=== PATIENT | female | born 1975 | race Caucasian/White ===

== ENCOUNTER 2021-03-03 16:35 | Emergency (ER) | payer OTHER, SELFPAY ==
--- NOTE | 2021-03-03 17:00 | DI.RAD_ITS ---
Exam(s) XR HAND LT COMPLETE EXAM: XR HAND LT COMPLETE CLINICAL HISTORY: Hyperextension injury, R/O Fracture. TECHNIQUE: 2D digital imaging was performed. COMPARISON: No exams were available for comparison FINDINGS: BONES: No acute fracture is present. No bony destructive lesion is seen. JOINTS: No dislocation present. Moderate degenerative changes are seen at the 1st CMC joint with join t space narrowing and periarticular spurring. SOFT TISSUE: Normal. No radiopaque foreign bodies in the soft tissues. IMPRESSION: No acute fracture or dislocation. DATA REPOSITORY: RADIATION DOSE DELIVERED:
[2021-03-03 17:01] VITALS: BP 151/96; PULSE 97; RESP 16; TEMP 37.2; O2SAT 100
--- NOTE | 2021-03-03 17:07 | ED.GENADUL_ITS ---
Discharge Plan Disposition Patient Disposition: HOME Condition: Stable Discharge Details Clinical Impression: Hyperextension of joint of hand, Sprain of hand, left Primary Care Provider: Unknown,Unknown ED Provider: Cora Rizvi Home Meds and New Rx's Prescriptions: No Action coenzyme [id number] E 100-100 mg-unit capsule 2 cap PO DAILY RF: 0 Discharge Instructions Instructions: Hand Sprain (ED) Additional Instructions: Wear splint for comfort. Rest ice compression elevation. The x-rays today show no acute fracture or bony abnormality. After 5 to 7 days you may do some light stretching. Follow-up with orthopedics within 1 to 2 weeks if continued pain. Please take Tylenol or Ibuprofen with food every 4-6 hours as needed for pain and swelling. Referrals: Brock Yancey MD [ [facility] STAFF PHYSICIAN] - Medical Decision Making 45-year-old female presents to the ER with chief complaint of left hand pain status post a hyperextension type injury prior to arrival. Patient states that she had her hand on a swinging door when a child ran through the door pushing her hand backwards. She is complaining of some snuffbox tenderness, hand pain no obvious deformity noted. She has not taken any medications prior to arrival. Denies any forearm or elbow tenderness. Cap refill less than 2 seconds. Imaging protocol: XR Left hand. Views: 3 or more views. COMPARISON: No relevant prior studies available. FINDINGS: Bones/joints: There is mild joint space narrowing at the 1st carpometacarpal joint. No acute fracture dislocation is seen. Soft tissues: Normal. IMPRESSION: 1. No acute findings. 2. Mild degenerative change at the 1st carpometacarpal joint. Thank you for allowing us to participate in the care of your patient. Dictated and Authenticated by: Avery Tobias MD Thumb spica of universal wrist splint applied by medical staff services manager discussed x-ray results patient verbalized understanding. Instructed on RICE procedures at home and follow-up with Ortho in 1 to 2 weeks if continued pain. Patient verbalized understanding. Patient was given 650 mg Tylenol here in department which seemed to improve her symptoms. This text was generated using [employer] system, please disregard any oddities of phrase or misspellings. HPI General Mode of arrival: ambulatory . Date/Time Provider Initiated Documentation: 03/03/21 16:41 . Limitations to Documentation: no limitations . Information obtained by: patient . HPI Narrative: 45-year-old female presents to the ER with chief complaint of left hand pain status post a hyperextension type injury prior to arrival. Patient states that she had her hand on a swinging door when a child ran through the door pushing her hand backwards. She is complaining of some snuffbox tenderness, hand pain no obvious deformity noted. She has not taken any medications prior to arrival. Denies any forearm or elbow tenderness. Cap refill less than 2 seconds. Related Data Home Medications Medication Instructions Recorded Confirmed coenzyme I69-vhdavai E 100 mg-100 2 cap PO DAILY 02/06/21 unit capsule Allergies Allergy/AdvReac Type Severity Reaction Status Date / Time amoxicillin Allergy Severe stop Verified 03/03/21 17:03 breathing ampicillin Allergy Severe stop Verified 03/03/21 17:03 breathing Penicillins Allergy Severe Anaphylaxsi Verified 03/03/21 17:03 s erythromycin base Allergy Unknown Verified 03/03/21 17:03 General Stated Complaint: Orthopedic BALTA: 4 Review of Systems All systems reviewed & are unremarkable except as noted in HPI and below Musculoskeletal Musculoskeletal: Denies deformity, Reports arthralgias and Reports limited range of motion PFSH Family History Grandmother Neoplasm BREAST Grandmother Neoplasm BREAST Social History Smoking/Tobacco Use Status: Former Tobacco Use Smoking risk assessment performed?: Yes Alcohol Intake: never Drug use: Never Substance use type: does not use Do you feel safe at home: Yes Do you feel safe in your relationship?: Yes Exam Const General: cooperative, healthy appearing and acute distress mild (Tearful) Nutritional Appearance: average body habitus and well nourished Orientation: alert, awake and oriented x3 Resp Effort & Inspection: normal respiratory effort Auscultation: clear to auscultation bilaterally Cardio Rhythm: regular rhythm Heart Sounds: S1 normal and S2 normal Extrem Right upper extremity: normal capillary refill and hand Details: tenderness Location: of the dorsal hand, of the palm and of the thumb and normal ROM of fingers; no unusual warmth, no foreign bodies and no puncture wound; no cyanosis and joint enlargement noted Course Vital Signs Vital signs: Vital Signs Temperature 37.2 C 03/03/21 17:01 Pulse 97 H 06/14/21 17:01 Respiratory Rate 16 03/03/21 17:01 Blood Pressure 151/96 H 03/03/21 17:01 Pulse Oximetry 100 03/03/21 17:01 Temperature 37.2 C 03/03/21 17:01 Temperature Source Skin 03/03/21 17:01 Pulse 97 H 03/03/21 17:01 Respiratory Rate 16 03/03/21 17:01 Respiratory Effort Non-Labored 03/03/21 17:04 Blood Pressure 151/96 H 03/03/21 17:01 Blood Pressure Position Sitting 03/03/21 17:01 Pulse Oximetry 100 03/03/21 17:01 Oxygen Delivery Method Room Air 03/03/21 17:01 Oxygen Flow Rate 0 03/03/21 17:01 Pain Level 6 03/03/21 17:01
--- NOTE | 2021-03-03 18:17 | DI.VRAD_ITS ---
PROCEDURE INFORMATION: Exam: XR Left Hand Exam date and time: 03/03/2021 5:07 PM Age: 45 years old Clinical indication: Pain; Hand; Left TECHNIQUE: Imaging protocol: XR Left hand. Views: 3 or more views. COMPARISON: No relevant prior studies available. FINDINGS: Bones/joints: There is mild joint space narrowing at the 1st carpometacarpal joint. No acute fracture dislocation is seen. Soft tissues: Normal. IMPRESSION: 1. No acute findings. 2. Mild degenerative change at the 1st carpometacarpal joint. Dictated and Authenticated by: Avery Tobias MD. Ordering:JOSEPHINE Shepherd MD
[2021-03-03] MEDS: Acetaminophen 325 MG TAB 650 MG PO (18:18)
== END 2021-03-03 18:52 | disposition home or self-care (01) ==
PROVIDERS: Emergency Provider Registered Nurse Emergency
DX: S63.8X2A Sprain of other part of left wrist and hand, initial encounter (principal); X50.1XXA Overexertion from prolonged static or awkward postures, initial encounter
CPT/HCPCS: 29125; 99283; 73130

== ENCOUNTER 2021-03-07 01:55 | Outpatient (CLI) | payer OTHER, SELFPAY ==
--- NOTE | 2021-03-07 07:45 | DI.MAMMO_ITS ---
Exam(s) MAMMO SCREENING EXAM: MAMMO SCREENING CLINICAL HISTORY: screening,Z12.39 TECHNIQUE: Bilateral full field digital CC and MLO mammographic images were obtained with 3D tomosyn thesis and utilizing computer aided detection (CAD). COMPARISON: Available for comparison. FINDINGS: Masses/Architectural Distortion: None seen. Microcalcifications: No suspicious pleomorphic-type are seen. Skin Thickening/Nipple Retraction: None. IMPRESSION: 1. No significant interval change with no specific features of malignancy noted. 2. Unless there is more urgent need, screening mammography is recommended, as per [place] [employer] guidelines. BI-RADS Category 1 - Negative Breast Density - Category B - Scattered areas of fibroglandular density Breast density category C or D implies that the patient has dense breast tissue. Dense breast tissue is very common and is not abnormal but dense breast tissue can make it harder to find cancer on a ma mmogram. Also, dense breast tissue may increase their breast cancer risk. This information about the result of the mammogram report was provided to the patient to raise their awareness. Use this report when you speak with the patient about their risks for breast cancer, which includes their family hist ory. At that time, you may recommend for more screening tests (Ultrasound or MRI) as they might be us eful based on their risk. A negative radiographic report should not delay biopsy if a dominant or clinically suspicious mass is present. Up to ten percent of cancers are not identified on mammography. A negative report may reinforce clinical impression. Adenosis and dense breasts may obscure an underlying neoplasm. False positive reports average 6 to 10%. Patient will receive a letter notifying them of these results.
--- NOTE | 2021-03-07 07:45 | DI.US_ITS ---
Exam(s) US PELVIS TRANSVAGINAL EXAM: US PELVIS TRANSVAGINAL CLINICAL HISTORY: Abnormal vag bleeding,N93.9. TECHNIQUE: Transabdominal and transvaginal pelvic ultrasound was performed using standard protocol. COMPARISON: No previous for comparison. FINDINGS: KIDNEYS: Kidneys are symmetric in size. No evidence of renal calculi. No evidence of hydronephrosis. No renal mass or cyst identified. UTERUS: Position: Anteverted. Size: 9.6 long by 4.8 AP by 5.1 transverse cm Endometrium: 0.9 cm. Normal for patient's menstrual status. Myometrium: Unremarkable. Cervix: Unremarkable. OVARIES: Right: 2.7 x 2.1 x 2.0 cm Cyst or mass: None. Left: 3.1 x 3 x 1.7 cm Cyst or mass: None. DOPPLER: Color: Symmetric and uniform flow to both ovaries. No hyperemia. CUL-DE-SAC: Free fluid: None. Other: None. IMPRESSION: 1. Normal sonographic appearance of the kidneys. 2. Normal-appearing uterus with endometrial stripe within normal limits. 3. Unremarkable bilateral ovaries. DATA REPOSITORY:
== END 2021-03-07 02:15 ==
PROVIDERS: Visit Provider Nurse Practitioner Family
DX: Z12.31 Encounter for screening mammogram for malignant neoplasm of breast (principal); R92.8 Other abnormal and inconclusive findings on diagnostic imaging of breast; N93.9 Abnormal uterine and vaginal bleeding, unspecified
CPT/HCPCS: 77063; 77067; 76830; 76856

== ENCOUNTER 2021-03-07 03:02 | Outpatient (CLI) | payer OTHER, SELFPAY ==
[2021-03-07 13:45] LABS: TSH (W/Ref FT4) 0.93 uIU/mL (0.36-3.74)
== END 2021-03-07 03:03 | disposition home or self-care (01) ==
LOC: LBO 03:02
PROVIDERS: Visit Provider Nurse Practitioner Family
DX: N92.5 Other specified irregular menstruation (principal)
CPT/HCPCS: 36415; 84443

== ENCOUNTER 2021-03-25 03:47 | Outpatient (CLI) | payer OTHER, SELFPAY ==
[2021-03-25 09:49] LABS: Source Nasal/Nares
[2021-03-25 14:10] LABS: COVID-19 PCR Negative (Negative)
== END 2021-03-25 03:48 | disposition home or self-care (01) ==
LOC: LBO 03:47
PROVIDERS: Visit Provider Obstetrics & Gynecology Gynecology
DX: Z20.822 Contact with and (suspected) exposure to COVID-19 (principal); Z01.818 Encounter for other preprocedural examination
CPT/HCPCS: 87635

== ENCOUNTER 2021-03-25 04:14 | Outpatient (CLI) | payer OTHER, SELFPAY ==
[2021-03-25 07:51] LABS: HCT 28.9 % (36.0-46.0); HGB 7.5 g/dL (11.2-15.7); MCH 16.3 pg (27.0-33.0); MPV 9.4 fL (8.0-11.0); Platelet Count 305 10^3/uL (130-400); RBC 4.59 10^6/uL (3.93-5.22); RDW 19.3 % (11.7-14.6); RDW-SD 42.5 fL; WBC 5.01 10^3/uL (4.4-10.8)
[2021-03-25 08:36] LABS: HCG Qual (Serum) Negative
[2021-03-25 08:48] LABS: Anion Gap 8.3 mmol/L (3-11); CO2 26.7 mmol/L (21.0-32.0); Chloride 108 mmol/L (98-107); Potassium 5.2 mmol/L (3.5-5.1); Sodium 143 mmol/L (136-145)
== END 2021-03-25 04:15 | disposition home or self-care (01) ==
LOC: LBO 04:15
PROVIDERS: Visit Provider Obstetrics & Gynecology Gynecology
DX: N93.8 Other specified abnormal uterine and vaginal bleeding (principal); D25.9 Leiomyoma of uterus, unspecified; Z01.818 Encounter for other preprocedural examination; Z01.812 Encounter for preprocedural laboratory examination
CPT/HCPCS: 36415; 80051; 85027; 86850; 86900; 86901; 84703

== ENCOUNTER 2021-03-27 12:14 | Day surgery (SDC) | payer OTHER, SELFPAY ==
[2021-03-27] VITALS (8 sets, daily range): BP systolic 99–161; BP diastolic 54–86; PULSE 54–78; RESP 16–24; TEMP 36–36.7; O2SAT 92–100; BMI 35.4
[2021-03-27] MEDS: Lactated Ringers 1,000 ML 125 ML IV ×2 (12:58→18:05)
--- NOTE | 2021-03-27 13:19 | ANES.PREOP_ITS ---
General Info Date of Service Date Performed: 03/27/21 Height: 5 ft 7 in Weight: 102.739 kg Body Mass Index (BMI): 35.4 Surgical Procedure: Operation Date: 03/27/21 14:40 Proposed Procedures Side Surgeon p hysteroscopic assisted resection of aborting submucosal fibroid Raquel Balbuena MD Meds Allergies and Home Medications Allergies Allergy/AdvReac Type Severity Reaction Status Date / Time amoxicillin Allergy Severe stop Verified 03/27/21 12:36 breathing ampicillin Allergy Severe stop Verified 03/27/21 12:36 breathing Penicillins Allergy Severe Anaphylaxsi Verified 03/27/21 12:36 s erythromycin base Allergy Unknown Verified 03/27/21 12:36 Cillins Allergy Severe Anaphylaxis Uncoded 03/27/21 12:36 Home Medication Medication Instructions Recorded coenzyme A93-bnevfql E 100 mg-100 2 cap PO DAILY 02/06/21 unit capsule Current Visit Medications: Current Medications Generic Name Dose Route Start Last Admin Trade Name Freq PRN Reason Stop Dose Admin Ringer's Solution 1,000 mls @ 125 mls/hr 03/27/21 06:00 03/27/21 12:58 IV 04/25/21 23:59 125 mls/hr INFUSION ANDI Administration IV Miscellaneous Supplies 1 each 03/27/21 06:00 Iv Access IV 04/25/21 23:59 DIRECTED ANDI Sodium Chloride 0 ml 03/27/21 06:00 Normal Saline Flush 10 Ml Syr IV 04/25/21 23:59 PRN PRN Sodium Chloride 0 ml 03/27/21 06:00 Normal Saline 10 Ml Vial IJ 04/25/21 23:59 DIRECTED PRN Sterile Water 0 ml 03/27/21 06:00 Water,Injection,Sterile 10 Ml Vial IJ 04/25/21 23:59 DIRECTED PRN PFSH Active Problems Active Problems: Problem Status Onset Code Pre-op exam Z01.818 Anemia D64.9 Hyperextension of joint of hand R29.898 Sprain of hand, left S63.92XA Cervical mass N88.8 Medical History Medical History Cervical mass 01/2021. Mass protruding through cervix. Most likely aborting submucosal fib roid Surgical History Surgical History History of tubal ligation Previous section x3 Tobacco Smoking/Tobacco Use Status: Former Tobacco Use Alcohol Alcohol Intake: never Substance Use Substance use: Never Substance use type: does not use Prental History History 6 Para Hx # Term Pregnancies 1 Multiple births Hx # Pregnancies Ectopic pregnancies AB induced Hx Number of Living Children 1 AB spontaneous Vital Signs and Lab Results Vital Signs Most Recent Vital Signs in EMR: Most Recent Vital Signs Temp Pulse Resp BP Pulse Ox 36.7 C 78 16 161/78 H 100 03/27/21 12:24 03/27/21 12:24 03/27/21 12:24 03/27/21 12:24 03/27/21 12:24 Lab Results Blood Type / Crossmatch: Patient ABO/Rh O Positive 03/25/21 07:40 03/25/21 Antibody Screen NEGATIVE 03/25/21 07:40 03/25/21 Complete Blood Count: White Blood Count 5.01 10^3/uL (4.4-10.8) 03/25/21 07:40 03/25/21 Red Blood Count 4.59 10^6/uL (3.93-5.22) 03/25/21 07:40 03/25/21 Hemoglobin 7.5 g/dL (11.2-15.7) L 03/25/21 07:40 03/25/21 Hematocrit 28.9 % (36.0-46.0) L 03/25/21 07:40 03/25/21 Platelet Count 305 10^3/uL (130-400) 03/25/21 07:40 03/25/21 Complete Metabolic Panel: Sodium Level 143 mmol/L (136-145) 03/25/21 07:40 03/25/21 Potassium Level 5.2 mmol/L (3.5-5.1) H 03/25/21 07:40 03/25/21 Chloride Level 108 mmol/L (98-107) H 03/25/21 07:40 03/25/21 Carbon Dioxide Level 26.7 mmol/L (21.0-32.0) 03/25/21 07:40 03/25/21 Liver Function Panel: No Data to Display Coagulation Panel: No Data to Display Cardiac Panel: No Data to Display Arterial Blood Gas: No Data to Display Venous Blood Gas: No Data to Display Pancreas Panel: No Data to Display Thyroid Panel: Thyroid Stimulating Hormone (TSH) 0.93 uIU/mL (0.36-3.74) 03/07/21 12:17 03/07/21 Infectious Disease: Coronavirus (COVID-19)(PCR) Negative (Negative) 03/25/21 08:40 03/25/21 Coronavirus 2019 Source Nasal/Nares 03/25/21 08:40 03/25/21 Blood Cultures: No Data to Display Toxicology Panel: No Data to Display Panel: Serum HCG, Qualitative Negative 03/25/21 07:40 03/25/21 Anesthesia Assessment and Plan Anesthesia History Personal History: No History of General Anesthesia Family History: No Family History of Anesthesia Complications Exercise Tolerance Exercise Tolerance: Metabolic Equivalents>4 Pertinent Negatives Pertinent Negatives: No Symptoms of GERD, No Major Cardiovascular Symptoms or Complaints, No Major Pulmonary Symptoms or Complaints and No History of CVA/TIA Cardiac & Pulmonary Exam Cardiac Exam: Normal S1/S2 Heart Sounds Pulmonary Exam: Clear Bilateral Breath Sounds Airway Exam Known Difficult Airway: No Mallampati Class: 2 Mouth Opening: Normal (> 3cm) Thyromental Distance: Greater than 3 cm Neck Range of Motion: Full ROM Neck Circumference: Normal Teeth Condition: Normal Dentition Airway Comments: Micrognathia High angle narrow palate ASA Classification ASA Score: ASA 2 Emergency Case?: No NPO Status NPO Status: NPO Clears >2 hours, Solids >8 hours Status Status: Negative HCG Anesthesia Plan Resuscitation Status: Full Code Anesthesia Technique: General Anesthesia Airway Planned: LMA Monitors Used: Standard Monitors
[2021-03-27] MEDS: Bupivacaine 0.25% Pres-Free 30 ML VIAL (16:37)
--- NOTE | 2021-03-27 16:45 | LEIOMYOMA_PTH ---
PATIENT: Mireille Mccullough LOC: [facility] U#:[id number] AGE/SX: 45/F ROOM: RE03/27/[address]: Raquel Balbuena : 1975 BED: DIS: 03/27/2021 SPEC #: [id number] RECD: 03/28/21 09:53 STATUS: YESSENIA REEdward #: [id number] JANE: 03/27/21 16:[address]: Raquel Balbuena DEPT: Surgical Specimen RECD BY: Altagracia Martinez ENTERED: 03/28/21 09:54 SP TYPE: LEIOMYOMA OTHR DR: None Tissues: 1 - LEIOMYOMA(W/O UTERUS) 2 - ENDOMETRIUM BX/CURRETTE Procedures: GROSS AND MICRO LEVEL 4 Comments: [id number]
--- NOTE | 2021-03-27 17:01 | W.PM.DSUDISC ---
Discharge Plan Disposition Patient Disposition: HOME Condition: Fair Discharge Details Reason For Visit: Hysteroscopic resection of first case she really.- Attending Provider: Raquel Balbuena Primary Care Provider: None,None Home Meds and New Rx's Prescriptions: No Action coenzyme R37-xwiwgfw E 100-100 mg-unit capsule 2 cap PO DAILY RF: 0 Discharge Instructions Additional Instructions: You have vaginal discharge including light bleeding for the next week. Continue to wear a pad and avoid tampons. If you have heavy bleeding that is saturating a regular size peripad I want you to contact me at [phone]. Nothing in the vagina including tampons or sexual intercourse until your postop visit with Dr. Balbuena in 2 weeks. Stand Alone Forms: DSU Post op Instructions Activity:: Activity as Tolerated Diet:: As Tolerated Discharge Orders Discharge Orders: Discharge Order (Routine); Ordered 03/27/21 Ordered By: Raquel Balbuena DS: Diagnosis Discharge Diagnosis (1) Cervical mass: Status: Acute (2) Anemia: Status: Chronic (3) Status post hysteroscopic myomectomy: Status: Acute
--- NOTE | 2021-03-27 17:36 | W.ANESPOSTOP ---
Postoperative Evaluation Date, Time and Location Date Performed: 03/27/21 Time Performed: 17:37 Patient Location: Day Surgery Unit Vital Signs Most Recent Imported Vital Signs: Most Recent Vital Signs Temp Pulse Resp BP Pulse Ox 36.0 C L 61 24 108/62 99 03/27/21 17:32 03/27/21 17:32 03/27/21 17:32 03/27/21 17:32 03/27/21 17:32 Assessment Mental Status: Awake (Alert & Oriented to Patient Baseline) Airway and Respiratory Function: Patent airway with normal (patient baseline) respiratory exam Cardiovascular Function: Hemodynamically Stable Hydration Status: Adequately Hydrated Nausea & Vomiting: No Nausea or Vomiting Pain: Pt. Denies Any Pain Peripheral Nerve Block: Patient did not receive a nerve block
--- NOTE | 2021-03-27 19:52 | W.PM.OP ---
Date of service: 03/27/21 Time of Service: 19:53 Operative Note Operative Note DATE OF PROCEDURE: 03/27/21 PRE-OP DIAGNOSIS: Anemia, submucosal fibroid aborting through cervix. POST-OP DIAGNOSIS: same ared normal dimension. The uterine cavity also appeared normal. At the completion of the imaging the catheter bulb was deflated and removed from the patient's vagina. The results of the procedure were discussed at length with the patient. She tolerated the procedure well. PROCEDURE: Hysteroscopy, resection of transcervical fibroid, uterine cavity curretage. SURGEON: Raquel Balbuena ASSISTING SURGEON: Aranza Muniz ANESTHESIA TYPE: General LMA/ETT Refer to Anesthesia Record ESTIMATED BLOOD LOSS: 10 PATHOLOGY: other (1. Transcervical fibroid 2. Endometrial curettings) COMPLICATIONS: None Patient was transported to: PACU Patient's condition: stable Indications: 45-year-old female with a history of abnormal uterine bleeding and physical exam revealing an aborting sub-mucosal fibroid. Preop testing indicated microcytic anemia and a normal thyroid stimulating hormone level Findings: 4cm firm mass attatched to the left lateral distal vagina and protruding through dilated cervix. Procedure Description: Patient was taken to the operating room where she was placed in the dorsal supine position and laryngeal mask anesthesia was administered without difficulty. She was then placed in the dorsal lithotomy position in yellowfin stirrups, prepped and draped in the usual sterile fashion. SCDs were in place. No antibiotics were required. Surgical timeout was performed a nd a bivalve speculum was placed in the patient's vagina. The anterior lip of the cervix was grasped with a single-tooth tenaculum. A paracervical block was performed by infiltrating 5 cc of 0.25% bupivacaine at the 4:00 and 6:00 paracervical spaces respectively. A diagnostic hysteroscope was introduced into the uterine cavity with the above noted findings then removed and in it's place a resectoscope was inserted into the uterine cavity with normal saline as the distention medium. I was unable achieve a satisfactory angle by which to begin the resection and then withdrew the resectoscope. I placed a surgical loop around the base of the fibroid and successfully amputated. The specimen was then passed off of the operative field. A banjo currete was introduced into the uterine cavity and all four quadrants of cavity were sampled. The hysteroscope was then reintroduced into the uterine cavity. No additional intracavity filling defects were noted. The hysteroscope was withdrawn and instruments removed from the vagina. Tenaculum site was noted to be hemostatic. The patient placed in the dorsal supine position. She was successfully awakened from anesthesia and transported to day surgery unit in stable condition. All sponge lap needle counts correct x2.
== END 2021-03-27 20:08 | disposition home or self-care (01) ==
LOC: SUR 17:17 → MS 18:03
PROVIDERS: Visit Provider Obstetrics & Gynecology Gynecology
PROC: 0UDB8ZZ Extraction of Endometrium, Via Natural or Artificial Opening Endoscopic (ICD-10-PCS; CPT 58558; principal; 2021-03-27 14:30)
DX: D25.0 Submucous leiomyoma of uterus (principal); D50.0 Iron deficiency anemia secondary to blood loss (chronic)
CPT/HCPCS: 58561; 88305; 88307; J0131; J1100; J2001; J2250; J2405

== ENCOUNTER 2021-05-29 16:17 | Outpatient (REF) | payer SELFPAY | END 2021-05-29 16:18 | disposition home or self-care (01) | LOC: LBN 16:17 | PROVIDERS: Visit Provider Obstetrics & Gynecology Gynecology | DX: N61.1 Abscess of the breast and nipple (principal) | CPT/HCPCS: 87070; 87205 ==

== ENCOUNTER → 2022-04-17 00:46 | Outpatient (CLI) | payer MEDICAID, SELFPAY ==
--- OUTSIDE RECORDS SUMMARY | 2022-04-17 00:48 | XMS_ITS | Encounter Summary ---
:1975 Author Organization [facility] Address [address] [place] [address] Care Team Providers Name Role Phone Unknown, Provider Primary Care Provider Encounter Details Date Type Department Care Team Description 03/28/2021 Lab Requisition [facility] Raquel Arevalo, En counter for other Pathology & MD general examination Laboratory Medicine [address] [place] [id number] Social History Tobacco Use Types Packs/Day Years Used Date Never Assessed Sex Assigned at Date Recorded Not on file documented as of this encounter Plan of Treatment Not on filedocumented as of this encounter Procedures Procedure Name Priority Date/Time Associated Diagnosis Comme nts SURGICAL PATHOLOGY Today 03/27/2021 16:45 Encounter for othe r Results for this EDT general examination procedur e are in the results section. documented in this encounter Results SURGICAL PATHOLOGY (03/27/2021 16:45 EDT) Final Diagnosis Attention patients [facility] The following pathology re sults have been interpreted by your pathologist and may be available to you before your health provider has had the opportunity to review them. Please allow time for your pro CENTER vider to receive these resul ts and explore management options, if applicable. LABORATORY SERVICES A. UTERUS, LEIOMYOMA, MYOMECTOMY: - Submucosal leiomyoma. - Overlying endocervical and squamous mucosa with erosion and inflammation and scant endometrium. See comment. B. ENDOMETRIUM, CURETTAGE: - Fragments of endometrial polyp(s) with secretory poncho nge. - Menstrual-type endometrium. See comment. Diagnosis Comment Back Roller slides [facility] of this case were CENTER reviewed at the LABORATORY intradepartmental SERVICES consultation conference. The presence of overlying endometrium and cervical mucosa in (A) raises the possibility of that the leiomyoma was located in the lower uterine segment with prolapse into the cervical canal. Correlation with the operative impression is necessary. Attestation There was significant [facility] Electr onically resident/fellow CENTER signed by Salome clemons, involvement in the LABORATORY Kelly Delaney MD on diagnostic evaluation SERVICES 021 at 1505 of this case. By the signature below, the attending physician certifies that they have personally conducted a gross and/or microscopic examination of the described specimens and rendered or confirmed the above diagnosis. Clinical History Uterine mass [facility] LABORATORY SERVICES Gross Description A. [facility] Received in formalin kyra d with proper patient identification (initials B, H) and 1. Submucosal fibroid is a firm white nodular mass (17.1 g, 5.0 x 2.5 x 2.5 cm). Sectioning the mass reveals a whor CENTER led white cut surface. Back Roller sections a re submitted in A1-A5. LABORATORY SERVICES B. Received in formalin kyra d with proper patient identification (initials B, H) and 2. Uterine curettings is an aggregate of brown and stewart friable tissue (2.7 x 1.2 x 0.7 cm). Entirely submitted in B1-B2. Marshall Burrell MD 03/31/2021 14:40 Resident/Fellow: Marshall Burrell MD [facility] LABORATORY SERVICES Performing Lab [facility]ORAT[facility] SERVICES Scanned Images [facility] LABORATORY SERVICES Specimen Tissue - Entire endometrium (body struct ure) Tissue specimen (specimen) - Entire endo metrium (body structure) Performing Organization Address City/State/[facility] Code Phon e Number [facility] [address] [place] [address] SERVICES documented in this encounter Visit Diagnoses Diagnosis Encounter for other general examination documented in this encounter Care Teams Binder Stripper Machine Relationship Specialty Start Date End Date Unknown, Provider, PCP - General 05/22/10 documented as of this encounter
--- OUTSIDE RECORDS SUMMARY | 2022-04-17 00:48 | XMS_ITS | Clinical Summary ---
:1975 Author Organization [facility] Address [address] [place] [id number] Care Team Providers Name Role Phone Unknown, Provider Primary Care Provider Social History Tobacco Use Types Packs/Day Years Used Date Never Assessed Sex Assigned at Date Recorded Not on file Plan of Treatment Health Maintenance Due Date Last Done Comments COVID-19 Vaccine (1) 1985 Insurance Payer Benefit Plan / Subscriber ID Effective Dates Phone Addre ss Type Group MVP [facility] [id number] 2021-Present [phone] [id number] [place] [address] Care Teams Student Support Counselor Relationship Specialty Start Date End Date Unknown, Provider, PCP - General 05/22/10
--- OUTSIDE RECORDS SUMMARY | 2022-04-17 00:49 | XMS_ITS | Encounter Summary ---
:[address] [facility] Address [address] [place] [address] Care Team Providers Name Role Phone Unknown, Provider Primary Care Provider Encounter Details Date Type Department Care Team Description 10/03/2010 Results Only [facility] Shannon Gandara MD Laboratory Services - [address] [place] [address] [place] [phone] Social History Tobacco Use Types Packs/Day Years Used Date Never Assessed Sex Assigned at Date Recorded Not on file documented as of this encounter Plan of Treatment Not on filedocumented as of this encounter Procedures Procedure Name Priority Date/Time Associated Diagnosis Comme nts SURGICAL PATHOLOGY Routine 10/03/2010 0:00 EST Re sults for this procedure are i n the results section. documented in this encounter Results SURGICAL PATHOLOGY (10/03/2010 0:00 EST) Pathology Report: SURGICAL PATHOLOGY REPORT ? [facility] Reports generated via Jostle interface contain original data; ? LAB however they are lacking the format of the original report. ? Caution should be taken when reading/interpreting unformatted reports. ? Name: ? JOHNATHAN, HEAT HER L ? Accession #: ? [id number] ? : ? 1975 (Age: 34) ??F ? Collec t Date: ? 10/03/2010 ? Location: ? [facility] ? R eceive Date: ? 10/04/2010 ? Provider: SHANNON ALEXX MD ? Copy to: KD GREEN MD ? Final Pathologic Diagnosis: ? A. ?Fallopian t ube, left, salpingectomy: ? 1. ?No specific pathologic features. ? 2. ? Full cross section demonstrated. ? B. ?Fallopian t ube, right, salpingectomy: ? 1. ?No specific pathologic features. ? 2. ? Full cross section demonstrated. ? Document reviewed and electr onically signed by: ? SATURNINO LARSEN MD ? Report ??Date: 10/07/2010 13 :18 ? By the signature above, the attending physician certifies that he/she has ? personally conducted a gross and/or microscopic examination of the described ? specimens and rendered or co nfirmed the above diagnosis. ? Specimen(s) Received: ? A. ?Left tube ? B. ? Right tube ? Clinical History: ? Desires sterilization ? Gross Description: ? Received in formalin labelled Mireille Mccullough and left tube is a ?? stewart-pink, tubular, 1.0 cm in length, 0.4 cm in diameter soft tissue surfaced by a stewart, glistening serosa. ?? Upon sectioning, the cut surfaces are wallis-white with a central, pinpoint lumen. ? ?No discrete nodule is present. ??Two premium representative ?? sections are submitted as (A ). ? Received in formalin kyra d Mireille Mccullough and right tube is a ? stewart-pink, tubular, 1.3 cm in length, 0.3 cm in diameter soft tissue surfaced by a stewart, glistening serosa. ?? The cut surfaces are wallis-white with a central, ? pinpoint lumen. ??No discret e nodule is present. ??Ammonium Hydroxide Operator sections are ? submitted as (B). ([facility] ? End of Report ? Specimen Performing Organization Address City/State/[facility] Code Phon e Number [facility] [address] [place] [address] SERVICES [facility] [address] [place] [address] documented in this encounter Visit Diagnoses Not on filedocumented in this encounter Care Teams Penetration Tester Relationship Specialty Start Date End Date Unknown, Provider, PCP - General 05/22/10 documented as of this encounter
--- OUTSIDE RECORDS SUMMARY | 2022-04-17 00:49 | XMS_ITS | Encounter Summary ---
:1975 Author Organization [facility] Address [address] [place] [address] Care Team Providers Name Role Phone Unknown, Provider Primary Care Provider Encounter Details Date Type Department Care Team Description 02/21/2018 Results Only [facility]- Kate Parker NP [phone] [place] [address] [place] [address] (Wo rk) Social History Tobacco Use Types Packs/Day Years Used Date Never Assessed Sex Assigned at Date Recorded Not on file documented as of this encounter Plan of Treatment Not on filedocumented as of this encounter Procedures Procedure Name Priority Date/Time Associated Diagnosis Comme nts PAP TEST- RESULT Routine 02/21/2018 0:00 EDT Resu lts for this ONLY procedure are i n the results section. documented in this encounter Results PAP TEST- RESULT ONLY (02/21/2018 0:00 EDT) Pathology Report: CYTOPATHOLOGY REPORT [facility] Reports generated via electronic interface contain des ginal data; SERVICES however they are lacking the format of the original re port. Caution should be taken when reading/interpreting unfo rmatted reports. Name: ? JEAN PAUL MCCULLOUGH ? Accession #: ? [id number] ? : ? 1975 (Age: [age]) ??F ?Collect Date: ? 2017 ? Location: ? [facility] ? Receive Date: ? 8 ? Provider: KATE SEGURA PAINTER MIRROR Copy to: ? Final Report SPECIMEN ADEQUACY ? Satisfactory for Evaluation - transformation zone component present GENERAL CATEGORIZATION ? Negative for Intraepithelial Lesion or Malignan cy ?? Last Menstrual Period: 02/10/18 Specimen/Source: ??Pap Test, Cervix, ThinPrep Imaging System with manual evaluation Document reviewed and electronically signed by: ? GAIL Mccullough(ASCP) ? Report ??Date: 03/01/2018 08:59 HPV with Pap Test ? Date Ordered: ? 03/01/2018 ? Status: ?? Signed Out ?Date Complete: ? 03/02/2018 ? By: ??Sy stem Interface ? Date Reported: ? 03/02/2018 ? Interpretation RESULT: Negative for HPV. No E6 or E7 mRNA is detected from HPV types 16,18,31,3 3,35, 39,45,51,52,56,58,59,66, and 68 by continuum of care manager media dimitri amplification. Comments Document reviewed and electronically signed by: ? System Interface ? Report date: 03/02/2018 By the signature above, the attending physician certif ies that he/she has personally conducted a gross and/or microscopic examin ation of the described specimens and rendered or confirmed the above diagnosi s. End of Report Specimen Performing Organization Address City/State/ZIP Code Phon e Number [facility] [address] [place] [address] SERVICES documented in this encounter Visit Diagnoses Not on filedocumented in this encounter Care Teams Rn Sexual Assault Relationship Specialty Start Date End Date Unknown, Provider, PCP - General 05/22/10 documented as of this encounter
--- OUTSIDE RECORDS SUMMARY | 2022-04-17 00:49 | XMS_ITS | Encounter Summary ---
:1975 Author Organization [facility] Address [address] [place] [address] Care Team Providers Name Role Phone Unknown, Provider Primary Care Provider Encounter Details Date Type Department Care Team Description 10/19/2006 Results Only [facility] - Susan Gandara MD Maple conversion [address] [place] [address] Social History Tobacco Use Types Packs/Day Years Used Date Never Assessed Sex Assigned at Date Recorded Not on file documented as of this encounter Plan of Treatment Not on filedocumented as of this encounter Procedures Procedure Name Priority Date/Time Associated Diagnosis Comme nts CYTOPATHOLOGY Routine 10/19/2006 0:00 EST Results for this procedure are i n the results section . documented in this encounter Results CYTOPATHOLOGY (10/19/2006 0:00 EST) Pathology Report: CYTOPATHOLOGY REPORT [facility] Reports generated via electronic interface contain des ginal data; however they are lacking the format of the original re port. Caution should be taken when reading/interpreting unfo rmatted reports. Name: ? MIREILLE MCCULLOUGH ? Accession #: ? [id number] : ? 1975 (Age: 30) ??F ?Collect Date: ? 09/22 Location: ? [facility] ? Receive Date : ? 10/20/2006 Provider: ?BERKLEY GANDARA MD Copy to: ? Specimen/Source: ? ThinPrep Pap Test, Cervix, processed on [employer] ThinPrep Imaging System, with manual evaluation Last Menstrual Period: ? 08/10/05 Hormonal/Contraceptive Status: ? Condoms Other: ? Additional clinical information: Pap wnl HPVA - HPV testing requested if ASC-US on the current ThinPrep Pap test. ? SPECIMEN ADEQUACY ? Satisfactory for Evaluation - transformation zone component present GENERAL CATEGORIZATION ? Negative for Intraepithelial Lesion or Malignan cy ? Document reviewed and electronically signed by: ? GAIL Scott(ASCP) ? Report Date: ??10/21/2006 14:40 End of Report Specimen Performing Organization Address City/State/ZIP Code Phon e Number [facility] [address] [place] [address] SERVICES [facility] [address] [place] [address] documented in this encounter Visit Diagnoses Not on filedocumented in this encounter Care Teams Bus Boy Relationship Specialty Start Date End Date Unknown, Provider, PCP - General 05/22/10 documented as of this encounter
--- OUTSIDE RECORDS SUMMARY | 2022-04-17 00:49 | XMS_ITS | Encounter Summary ---
:1975 Author Organization [facility] Address [address] [place] [address] Care Team Providers Name Role Phone Unknown, Provider Primary Care Provider Encounter Details Date Type Department Care Team Description 10/02/2005 Results Only [facility] - Susan Gandara MD Maple conversion [address] [place] [address] [place] [address] Social History Tobacco Use Types Packs/Day Years Used Date Never Assessed Sex Assigned at Date Recorded Not on file documented as of this encounter Plan of Treatment Not on filedocumented as of this encounter Procedures Procedure Name Priority Date/Time Associated Diagnosis Comme nts CYTOPATHOLOGY Routine 10/02/2005 0:00 EST Results for this procedure are i n the results section . documented in this encounter Results CYTOPATHOLOGY (10/02/2005 0:00 EST) Pathology Report: CYTOPATHOLOGY REPORT [facility] Reports generated via electronic interface contain des ginal data; however they are lacking the format of the original re port. Caution should be taken when reading/interpreting unfo rmatted reports. Name: ? MIREILLE MCCULLOUGH ? Accession #: ? [id number] : ? 1975 (Age: 29) ??F ?Collect Date: ? 09/20 Location: ? [facility] ? Receive Date : ? 10/05/2005 Provider: ?BERKLEY GANDARA MD Copy to: ? Specimen/Source: ? ThinPrep Pap Test, Cervix/Endocervix, processed on [employer] ThinPrep Imaging System, with manual evaluation Last Menstrual Period: ? 09/23/05 Hormonal/Contraceptive Status: ? Intrauterine device Other: ? HPVA - HPV testing requested if ASC-US on the current ThinPrep Pap test. ? SPECIMEN ADEQUACY ? Satisfactory for Evaluation - transformation zone component present GENERAL CATEGORIZATION ? Negative for Intraepithelial Lesion or Malignan cy INTERPRETATION ? Shift in tonie present suggestive of bacterial vaginosis. ? Document reviewed and electronically signed by: ? GAIL Scott(ASCP) ? Report Date: ??10/06/2005 16:18 End of Report Specimen Performing Organization Address City/State/ZIP Code Phon e Number [facility] [address] [place] [address] SERVICES [facility] [address] [place] [address] documented in this encounter Visit Diagnoses Not on filedocumented in this encounter Care Teams Machinist Mechanic Relationship Specialty Start Date End Date Unknown, Provider, PCP - General 05/22/10 documented as of this encounter
--- OUTSIDE RECORDS SUMMARY | 2022-04-17 00:49 | XMS_ITS | Encounter Summary ---
:1975 Author Organization [facility] Address [address] [place] [address] Care Team Providers Name Role Phone Unavailable Primary Care Provider Unavailable Encounter Details Date Type Department Care Team Description 04/20/2003 Results Only [facility] - Susan Gandara MD Maple conversion [address] [place] [address] [place] [address] Social History Tobacco Use Types Packs/Day Years Used Date Never Assessed Sex Assigned at Date Recorded Not on file documented as of this encounter Plan of Treatment Not on filedocumented as of this encounter Procedures Procedure Name Priority Date/Time Associated Diagnosis Comme nts CYTOPATHOLOGY Routine 04/20/2003 0:00 EDT Results for this procedure are i n the results section . documented in this encounter Results CYTOPATHOLOGY (04/20/2003 0:00 EDT) Pathology Report: CYTOPATHOLOGY REPORT [facility] Reports generated via electronic interface contain des ginal data; however they are lacking the format of the original re port. Caution should be taken when reading/interpreting unfo rmatted reports. Name: ? MIREILLE MCCULLOUGH ? Accession #: ? [id number] : ? 1975 (Age: 27) ??F ?Collect Date: ? 08/0 09/2002 Location: ? [facility] ? Receive Date : ? 04/23/2003 Provider: ?BERKLEY GANDARA MD Copy to: ? Specimen/Source: ?ThinPrep Pap Test, Cervix/ Endocervix Last Menstrual Period: ? 05/22 Menstrual/ Status: ? Post Hormonal/Contraceptive Status: ? Condoms ? SPECIMEN ADEQUACY ? Satisfactory for Evaluation - transformation zone component present GENERAL CATEGORIZATION ? Negative for Intraepithelial Lesion or Malignan cy ? Document reviewed and electronically signed by: ? GAIL Mccullough(ASCP) ? Report Date: ??04/26/2003 06:16 End of Report Specimen Performing Organization Address City/State/ZIP Code Phon e Number [facility] [address] [place] [address] SERVICES [facility] [address] [place] [address] documented in this encounter Visit Diagnoses Not on filedocumented in this encounter
--- OUTSIDE RECORDS SUMMARY | 2022-04-17 00:49 | XMS_ITS | Encounter Summary ---
:1975 Author Organization [facility] Address [address] [place] [address] Care Team Providers Name Role Phone Unavailable Primary Care Provider Unavailable Encounter Details Date Type Department Care Team Description 05/20/2010 Results Only [facility] Jad Lagunas, AG Laboratory Services - [id number] [place] [id number] [phone] Social History Tobacco Use Types Packs/Day Years Used Date Never Assessed Sex Assigned at Date Recorded Not on file documented as of this encounter Plan of Treatment Pending Results Name Type Priority Associated Diagnoses Date/Ti me AFP ONLY Lab Routine 05/20/2010 11:0 3 EDT [facility] INTERPRETATION Lab Routine 0 11:03 EDT Scheduled Orders Name Type Priority Associated Diagnoses Order S chedule AFP ONLY Lab Routine ONCE for 1 Occu rrences starting 05/20/2010 unti l 05/20/2010 [facility] INTERPRETATION Lab Routine ONCE for 1 Occurrences starting 05/21/2010 unti l 05/21/2010 documented as of this encounter Visit Diagnoses Not on filedocumented in this encounter
--- OUTSIDE RECORDS SUMMARY | 2022-04-17 00:49 | XMS_ITS | Encounter Summary ---
:1975 Author Organization [facility] Address [address] [place] [address] Care Team Providers Name Role Phone Unavailable Primary Care Provider Unavailable Encounter Details Date Type Department Care Team Description 03/17/2010 Results Only [facility] Jad Lagunas, SEAMUS Laboratory Services - [id number] [place] [address] [id number] [phone] Social History Tobacco Use Types Packs/Day Years Used Date Never Assessed Sex Assigned at Date Recorded Not on file documented as of this encounter Plan of Treatment Not on filedocumented as of this encounter Procedures Procedure Name Priority Date/Time Associated Diagnosis Comme nts CYTOPATHOLOGY Routine 03/17/2010 0:00 EDT Results for this procedure are i n the results section . documented in this encounter Results CYTOPATHOLOGY (03/17/2010 0:00 EDT) Pathology Report: CYTOPATHOLOGY REPORT ? [facility] Reports generated via [employer] interface contain original data; ? however they are lacking the format of the original report. ? Caution should be taken when reading/interpreting unformatted reports. ? Name: ? JEAN PAUL MCCULLOUGH HER L ? Accession #: ? [id number] ? : ? 1975 (Age: 34) ??F ?Collect Date: ? 03/17/2010 ? Location: ? [facility] ? Receive Date: ? 03/18/2010 ? Provider: ?KD IRIZARRY DIANE CNM ? Copy to: ? Specimen/Source: ? Pap Test, Cervix/Endocervix, ThinPrep Imaging System ? with manual evaluation ? Last Menstrual Period: ? 4/5/10 ? Menstrual/ Status: ? Other: ? HPVA - HPV testing requested if ASC-US on the current ThinPrep Pap test. ? SPECIMEN ADEQUACY ? Satisfactory for Eval uation ? - transformation zone compon ent present ? GENERAL CATEGORIZATION ? Negative for Intraepi thelial Lesion or Malignancy ? Document reviewed and electr onically signed by: ? Ryanne Verville,[place](ASCP) ? Report Date: ??07/02/ 2010 11:14 ? End of Report ? Specimen Performing Organization Address City/State/ZIP Code Phon e Number [facility] [address] [place] [address] SERVICES [facility] [address] [place] [address] documented in this encounter Visit Diagnoses Not on filedocumented in this encounter
--- NOTE | 2022-04-17 08:47 | DI.MAMMO_ITS ---
Exam(s) MAMMO SCREENING EXAM: MAMMO SCREENING CLINICAL HISTORY: screening, Z12.39 TECHNIQUE: Bilateral full field digital CC and MLO mammographic images were obtained with 3D tomosyn thesis and utilizing computer aided detection (CAD). COMPARISON: Available for comparison. FINDINGS: Masses/Architectural Distortion: None seen. Microcalcifications: No suspicious pleomorphic-type are seen. Skin Thickening/Nipple Retraction: None. IMPRESSION: 1. No significant interval change with no specific features of malignancy noted. 2. Unless there is more urgent need, screening mammography is recommended, as per [employer] guidelines. BI-RADS Category 1 - Negative Breast Density - Category B - Scattered areas of fibroglandular density Breast density category C or D implies that the patient has dense breast tissue. Dense breast tissue is very common and is not abnormal but dense breast tissue can make it harder to find cancer on a ma mmogram. Also, dense breast tissue may increase their breast cancer risk. This information about the result of the mammogram report was provided to the patient to raise their awareness. Use this report when you speak with the patient about their risks for breast cancer, which includes their family hist ory. At that time, you may recommend for more screening tests (Ultrasound or MRI) as they might be us eful based on their risk. A negative radiographic report should not delay biopsy if a dominant or clinically suspicious mass is present. Up to ten percent of cancers are not identified on mammography. A negative report may reinforce clinical impression. Adenosis and dense breasts may obscure an underlying neoplasm. False positive reports average 6 to 10%. Patient will receive a letter notifying them of these results.
== END ==
PROVIDERS: PCP Nurse Practitioner; Visit Provider Nurse Practitioner
DX: Z12.31 Encounter for screening mammogram for malignant neoplasm of breast (principal); R92.8 Other abnormal and inconclusive findings on diagnostic imaging of breast
CPT/HCPCS: 77063; 77067

== ENCOUNTER 2022-04-17 01:20 | Outpatient (CLI) | payer MEDICAID, SELFPAY ==
[2022-04-17 07:59] LABS: HGB 13.1 g/dL (11.2-15.7); MCV 84 fL (80-95); MPV 10.6 fL (8.0-11.0); Platelet Count 230 10^3/uL (130-400); RBC 4.86 10^6/uL (3.93-5.22); RDW 14.2 % (11.7-14.6); RDW-SD 43.4 fL; WBC 5.69 10^3/uL (4.4-10.8)
[2022-04-17 08:23] LABS: Hemoglobin A1C 5.3 % (<5.7)
[2022-04-17 08:42] LABS: Anion Gap 7.4 mmol/L (3-11); BUN 9 mg/dL (7-18); CO2 27.6 mmol/L (21.0-32.0); CREATININE 0.7 mg/dL (0.55-1.02); Calcium 8.5 mg/dL (8.5-10.1); Calculated LDL 82 mg/dL (<100); Chloride 107 mmol/L (98-107); Cholesterol 152 mg/dL (<200); Glucose 86 mg/dL (74-106); HDL Cholesterol 59 mg/dL (40-60); Potassium 3.6 mmol/L (3.5-5.1); Sodium 142 mmol/L (136-145); Triglyceride 58 mg/dL (<150)
== END 2022-04-17 01:21 | disposition home or self-care (01) ==
LOC: LBO 01:20
PROVIDERS: PCP Nurse Practitioner; Visit Provider Nurse Practitioner
DX: Z13.1 Encounter for screening for diabetes mellitus (principal); Z13.6 Encounter for screening for cardiovascular disorders; I10 Essential (primary) hypertension; D50.0 Iron deficiency anemia secondary to blood loss (chronic)
CPT/HCPCS: 36415; 80048; 80061; 85027; 83036

== ENCOUNTER 2022-12-14 06:35 | Emergency (ER) | payer MEDICAID, SELFPAY ==
[2022-12-14 06:44] VITALS: BP 168/107; PULSE 86; RESP 20; TEMP 36.7; O2SAT 97
[2022-12-14 07:20] LABS: Bilirubin Negative (Negative); Blood Negative (Negative); Clarity Sl Cloudy (Clear); Glucose Negative (Negative); Ketones Negative (Negative); Leukocyte Esterase Trace (Negative); Nitrite Positive (Negative); Specific Gravity 1.025 (1.005-1.025); Urobilinogen 0.2 mg/dL (Up to 0.2)
[2022-12-14 07:26] LABS: Bacteria Many HPF (Negative); C & S Indicated? Yes; Casts Negative LPF (Negative); Crystals Negative HPF (Negative); Epithelial Cells Few HPF (Negative); Mucus Negative (Negative); RBC Negative HPF (0-2)
--- NOTE | 2022-12-14 07:32 | ED.GENADUL_ITS ---
Discharge Plan Disposition Patient Disposition: Home Condition: Improving Discharge Details Clinical Impression: Back pain, Urinary tract infection Primary Care Provider: Shabana Cody ED Provider: James Waite Home Meds and New Rx's Prescriptions: New cephalexin 500 mg capsule 500 mg PO QID 5 Days Qty: 20 0RF No Action lisinopril 10 mg tablet 10 mg PO DAILY Qty: 90 3RF Discharge Instructions Instructions: Urinary Tract Infection in Women (ED), Back Pain (ED) Medical Decision Making <Ellen Sykes DO - Last Filed: 12/14/22 08:13> 0730 -- 47-year-old female with no significant past medical history presents for left buttock and groin pain for the past 3 days. Denies any injury, urinary or cauda equina symptoms. Patient has tenderness to her left buttock and left anterior proximal thigh. This area appears normal to inspection without trauma, cellulitis or rash. There is no deformity or leg shortening. She is neurovascularly intact. Her abdomen is soft and nontender. There is no obvious lymphadenopathy in the left groin. Patient appears uncomfortable when moving from sitting to standing position and pain appears reproducible. Suspect most likely sciatica. Also consider lumbar strain, spinal stenosis, disc herniation. History and pres entation does not appear consistent with kidney stone, pyelonephritis or cauda equina syndrome. She has no report of injury or evidence of trauma or focal deficits on exam, so do not see an indication for imaging. Nursing placed an IV on arrival so we will give a dose of 30 mg Toradol IV in addition to 5 mg Valium p.o., 5 mg oxycodone p.o. and 60 mg prednisone p.o. Nursing obtained a urine sample on arrival which does appear consistent with UTI so we will treat with antibiotics. 0800 -- Case endorsed to Dr. Waite to follow-up on patient response to medications. If she has no significant worsening, will plan for discharge to home with plan for outpatient treatment with steroids and muscle relaxers. Medical Records Medical records reviewed: Yes I reviewed the patient's medical records. <James Waite MD - Last Filed: 12/14/22 08:24> 0730 -- 47-year-old female with no significant past medical history presents for left buttock and groin pain for the past 3 days. Denies any injury, urinary or cauda equina symptoms. Patient has tenderness to her left buttock and left anterior proximal thigh. This area appears normal to inspection without trauma, cellulitis or rash. Ther e is no deformity or leg shortening. She is neurovascularly intact. Her abdomen is soft and nontender. There is no obvious lymphadenopathy in the left groin. Patient appears uncomfortable when moving from sitting to standing position and pain appears reproducible. Suspect most likely sciatica. Also consider lumbar strain, spinal stenosis, disc herniation. History and presentation does not appear consistent with kidney stone, pyelonephritis or cauda equina syndrome. She has no report of injury or evidence of trauma or focal deficits on exam, so do not see an indication for imaging. Nursing placed an IV on arrival so we will give a dose of 30 mg Toradol IV in addition to 5 mg Valium p.o., 5 mg oxycodone p.o. and 60 mg prednisone p.o. Nursing obtained a urine sample on arrival which does appear consistent with UTI so we will treat with antibiotics. 0800 -- Case endorsed to Dr. Waite to follow-up on patient response to medications. If she has no significant worsening, will plan for discharge to home with plan for outpatient treatment with steroids and muscle relaxers. 8: 22 patient resting comfortably no acute distress. Incidental UTI. Will treat with Keflex as patient has been treated in the past with this medication without issue. History physical consistent with left-sided sciatica HPI <Ellen Sykes DO - Last Filed: 12/14/22 08:13> General Mode of arrival: ambulatory . Date/Time Provider Initiated Documentation: 12/14/22 07:16 . Limitations to Documentation: no limitations . Information obtained by: patient . HPI Narrative: Patient is a 47-year-old female who presents with left buttock and groin pain for the past 3 days. Patient states she awoke with the pain Wednesday morning and states it has gotten worse since then. Patient states pain is in her left buttock and radiates around to her left anterior thigh and groin area. She states on Wednesday morning she initially felt spasms in her left anterior thigh. She states since then she has developed the pain in the left buttock then radiating around to her left anterior thigh. She states the pain is worse with any movement and changing positions and walking. She has been taking 600 to 800 mg of ibuprofen every 4-6 hours since Wednesday without significant relief. She denies any known injury. She denies any fever, abdominal pain, nausea, vomi ting, urinary frequency, urgency, dysuria, diarrhea, bowel or bladder incontinence, saddle anesthesia, leg weakness or numbness and any radiation of pain extending beyond her left proximal thigh. Patient was driven here to the emergency department by family member. Patient has not taken a medication for pain at this morning. Related Data Home Medications Medication Instructions Recorded Confirmed lisinopril 10 mg tablet 10 mg PO DAILY #90 tabs 05/20/22 12/14/22 cephalexin 500 mg capsule 500 mg PO QID 5 days #20 caps 12/14/22 Previous Rx's Medication Instructions Recorded lisinopril 10 mg tablet 10 mg PO DAILY #90 tabs 05/20/22 cephalexin 500 mg capsule 500 mg PO QID 5 days #20 caps 12/14/22 Allergies Allergy/AdvReac Type Severity Reaction Status Date / Time amoxicillin Allergy Severe stop Verified 05/20/22 15:54 breathing ampicillin Allergy Severe stop Verified 05/20/22 15:54 breathing Penicillins Allergy Severe Anaphylaxsi Verified 05/20/22 15:54 s erythromycin base Allergy Unknown Anaphylaxis Verified 05/20/22 15:54 Cillins Allergy Severe Anaphylaxis Uncoded 05/20/22 15:54 General Stated Complaint: FlankPain BALTA: 3 Review of Systems <Ellen Sykes DO - Last Filed: 12/14/22 08:13> All systems reviewed & are unremarkable except as noted in HPI and below Constitutional Constitutional: Reports as per HPI, Denies chills and Denies fever(s) Eyes Eyes: Denies blurry vision ENT Ears, Nose, Mouth, and Throat: Denies dizziness, Denies sore throat and Denies throat swelling Cardiovascular Cardiovascular: Denies chest pain and Denies dyspnea Respiratory Respiratory: Denies cough and Denies dyspnea Gastrointestinal Gastrointestinal: Denies abdominal pain, Denies diarrhea and Denies vomiting Genitourinary Genitourinary: Denies hematuria and Denies dysuria Musculoskeletal Musculoskeletal: Denies back pain and Denies numbness Comments: left buttock and groin pain Integumentary/Breasts Skin/Breast: Denies lesions and Denies rash Neurologic Neurologic: Denies dizziness, Denies localized weakness and Denies numbness Allergic/Immunologic Allergic/Immunologic: Denies throat swelling PFSH <Ellen Sykes DO - Last Filed: 12/14/22 08:13> All Active Problems (Updated 12/14/22 @ 08:23 by James Waite MD) Back pain (Acute) Urinary tract infection (Acute) Hypertension (Chronic) Left hip pain (Acute) Anemia (Chronic) Medical History (Updated 12/14/22 @ 08:23 by James Waite MD) Arthralgia Cervical mass 01/2021. Mass protruding through cervix. 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 hysteroscopic resection of aborting submucosal fibroid Family History Grandmother Neoplasm BREAST Grandmother Neoplasm BREAST Social History (Updated 04/20/22 @ 15:39 by Franca Padgett) Smoking/Tobacco Use Status: Former Tobacco Use tobacco type: cigarettes Quit Date: 09/20/99 Tobacco: How many years used: 19 Second Hand Exposure: No Smoking risk assessment performed?: Yes Alcohol Intake: former Drug use: Never Substance use type: does not use Caregiver/Support person: No Household members: spouse, children and other Details: [facility] Housing: house Number of Children: 1 Do you need help understanding health information?: Never current occupation: [employer] teacher Pets and animals: Yes Pets and animals: cat(s), dog(s) and other Details: Snake,Lizard Sexually active: Yes Do you think of yourself as: straight/heterosexual Current gender identity: female What is your relationship status?: How often do you talk on the phone with friends or family?: three or more times per week How often do you get together with friends or relatives?: twice per week How often do you attend presybeterian or voodoo services?: 4 or more times per year Do you belong to any clubs or organized social groups?: no Panel score (0-1 are the most socially isolated patients): 3 What type of physical activity do you participate in: walking and other Details: Hiking Radha/Scientologist: Satish Special radha needs: No Do you feel safe at home: Yes Do you feel safe in your relationship?: Yes Female Reproductive History Menstrual control method: permanent sterilization History History 6 Para Hx # Term Pregnancies 1 Multiple births Hx # Pregnancies Ectopic pregnancies AB induced Hx Number of Living Children 1 AB spontaneous Exam <Ellen Sykes DO - Last Filed: 12/14/22 08:13> Const General: cooperative, uncomfortable and no acute distress Orientation: alert, awake and oriented x3 HENMT Head: normal to inspection Face and sinus: normal facial exam Eyes General: appearance normal, both eyes and all related structures Pupils: PERRL EOM: EOM intact bilaterally Neck Neck: normal visual inspection and No submandibular swelling Lymphatic: no lymphadenopathy noted Chest Chest: normal inspection of the chest and no tenderness Resp Effort & Inspection: normal respiratory effort and able to speak in complete sentences Auscultation: clear to auscultation bilaterally Cardio Rate: regular rate Rhythm: regular rhythm GI Inspection: normal to inspection Palpation: soft, not firm, not rigid and nontender Auscultation: hypoactive bowel sounds Back/Spine/Pelvis Back: no CVA tenderness Thoracic/Lumbar Spine: thoracic and lumbar spine normal to inspection and No lumbar spinal tenderness Pelvis: no pain with anterior-posterior compression Back/spine/pelvis image: 1. Location of pain. Area appears normal to inspection without erythema edema, ecchymosis, rash or lesions. Skin General skin exam: no rashes or lesions noted Neuro General: patient alert, patient awake and patient oriented x3 Cognition: normal cognition Speech: speech normal Motor: muscle tone normal throughout Sensory Exam: no sensory deficits noted DTR's: Rt Patellar: 0, Lt Patellar: 0, Rt Ankle: 0 and Lt Ankle: 0 Plantar Reflexes: Equivocal: bilateral (negative babinski b/l ) Extrem General: normal to inspection, full ROM, capillary refill normal, no calf tenderness bilaterally and no edema Upper/lower leg/hip images: 1. Pain extends from left buttock into left anterior thigh. Left hip and thigh appear normal to inspection without erythema, edema, rash or lesions. Other: Pain in left buttock appears reproducible as patient has increased pain with moving from sitting to standing position in addition to hip flexion. There is no left lower extremity shortening or deformity. Psych Appearance: grossly normal Mental Status: mental status grossly normal Speech and Movement: speech and movement normal Affect: normal affect Course <Ellen Sykes DO - Last Filed: 12/14/22 08:13> Vital Signs Vital signs: Vital Signs Temperature 98.1 F 12/14/22 06:44 Pulse 86 12/14/22 06:44 Respiratory Rate 20 12/14/22 06:44 Blood Pressure 168/107 H 12/14/22 06:44 Pulse Oximetry 97 12/14/22 06:44 Temperature 98.1 F 12/14/22 06:44 Temperature Source Oral 12/14/22 06:44 Pulse 86 12/14/22 06:44 Respiratory Rate 20 12/14/22 06:44 Respiratory Effort Normal 12/14/22 06:51 Blood Pressure 168/107 H 12/14/22 06:44 Blood Pressure Position Sitting 12/14/22 06:44 Pulse Oximetry 97 12/14/22 06:44 Oxygen Delivery Method Room Air 12/14/22 06:44 Oxygen Flow Rate 0 12/14/22 06:44 Pain Level 5 12/14/22 06:44 Lab/Test Results Lab/Test Results: 12/14/22 07:04 Urine - Reflex from Ua Urine Culture - Pending Laboratory Tests Range/Units 12/14/22 07:04 Urine Color (Yellow) Yellow Urine Clarity (Clear) Sl Cloudy Urine pH (5-8) 7.0 Ur Specific [place] (1.005-1.025) 1.025 Urine Protein (Negative) mg/dL Negative Urine Ketones (Negative) mg/dL Negative Urine Blood (Negative) Negative Urine Nitrite (Negative) Positive H Urine Bilirubin (Negative) Negative Urine Urobilinogen (Up to 0.2) mg/dL 0.2 Ur Leukocyte Esterase (Negative) Trace H Urine RBC (0-2) HPF Negative Urine WBC (0-5) HPF 10-20 H Ur Epithelial Cells (Negative) HPF Few Urine Crystals (Negative) HPF Negative Urine Bacteria (Negative) HPF Many Urine Casts (Negative) LPF Negative Urine Mucus (Negative) Negative Ur Culture Indicated? Yes Urine Glucose (Negative) mg/dL Negative POC- Test(urine) Negative Sign Out <Ellen Sykes DO - Last Filed: 12/14/22 08:13> Sign Out Data: Sign Out Comment: Left buttock and groin pain since Wednesday morning. No known injury. No urinary symptoms. No cauda equina symptoms. Appears musculoskeletal, likely sciatica. Nursing sent urine sample which appears consistent with UTI as well. Follow-up on response to medication and likely plan for outpatient treatment with steroids and muscle relaxers in addition to antibiotics for UTI. Last updated by Ellen Sykes DO at 12/14/22 07:50
[2022-12-14] MEDS: Ketorolac 30 MG/ML VIAL IVP (07:44)
[2022-12-14] MEDS: diazePAM 5 MG TAB PO (07:45)
[2022-12-14] MEDS: predniSONE 20 MG TAB 60 MG PO (07:46)
[2022-12-14] MEDS: Cephalexin 500 MG CAP PO (08:18)
[2022-12-14 08:52] VITALS: BP 138/81; PULSE 67; RESP 18; O2SAT 99
--- NOTE | 2022-12-17 08:26 | NUR.NOTE ---
Nursing Note: Accessed pt chart to determine antibiotic on discharge.
== END 2022-12-14 09:01 | disposition home or self-care (01) ==
PROVIDERS: Physician Assistant; Emergency Provider Emergency Medicine; PCP Nurse Practitioner Family
DX: N39.0 Urinary tract infection, site not specified (principal); M54.59 Other low back pain; B96.1 Klebsiella pneumoniae [K. pneumoniae] as the cause of diseases classified elsewhere
CPT/HCPCS: 81025; 87077; 96374; 99284; 81003; 81015; 87086; 87186; J1885; J7512

== ENCOUNTER 2023-06-01 16:12 | Outpatient (REF) | payer MEDICAID, SELFPAY ==
--- NOTE | 2023-06-01 15:00 | PAPFT_PTH ---
PATIENT: Mireille Mccullough LOC: [facility] U#:[id number] AGE/SX: 47/F ROOM: RE06/01/[address]: Shabana Cody NP : 1975 BED: DIS: 06/01/2023 SPEC #: [id number] RECD: 06/02/23 12:47 STATUS: YESSENIA REEdward #: [id number] JANE: 06/01/23 15:[address]: Shabana Cody DEPT: [facility] Cytology RECD BY: Donna Call Tissues: 1 - CX/ENDOCX FOR PAP SMEARS Procedures: PAP THIN PREP/UVM Screening HPV DNA PROBE Comments: [id number]
== END 2023-06-01 16:13 | disposition home or self-care (01) ==
LOC: LBN 16:12
PROVIDERS: PCP Nurse Practitioner Family; Visit Provider Nurse Practitioner Family
DX: Z12.4 Encounter for screening for malignant neoplasm of cervix (principal); Z11.51 Encounter for screening for human papillomavirus (HPV)
CPT/HCPCS: 88142; 87624

== ENCOUNTER 2024-04-25 03:03 | Outpatient (CLI) | payer MEDICAID, SELFPAY ==
[2024-04-25 12:25] LABS: Abs Immature Grans 0.01 10^3/uL (0.0-0.06); Absolute Basophil Count 0.05 10^3/uL (0.0-0.2); Absolute Eosinophil Count 0.12 10^3/uL (0.0-0.7); Absolute Lymphocyte Count 1.36 10^3/uL (1.2-3.4); Absolute Monocyte Count 0.39 10^3/uL (0.1-0.8); Absolute Neutrophil Count 3.22 10^3/uL (1.2-6.7); Eosinophils % 2.3 %; HGB 13.8 g/dL (11.2-15.7); Immature Grans % 0.2 %; Lymphocytes % 26.4 %; MCH 27.5 pg (27.0-33.0); MCHC 32.1 % (32.0-36.0); MCV 86 fL (80-95); MPV 11.5 fL (8.0-11.0); Monocytes % 7.6 %; Neutrophils % 62.5 %; Platelet Count 262 10^3/uL (130-400); RBC 5.01 10^6/uL (3.93-5.22); RDW 14.1 % (11.7-14.6); RDW-SD 44.5 fL; WBC 5.15 10^3/uL (4.4-10.8)
[2024-04-25 13:00] LABS: Anion Gap 6.2 mmol/L (3-11); BUN 8 mg/dL (7-18); CO2 28.8 mmol/L (21.0-32.0); CREATININE 0.7 mg/dL (0.55-1.02); Calcium 9.3 mg/dL (8.5-10.1); Calculated LDL 94 mg/dL (<100); Chloride 109 mmol/L (98-107); Cholesterol 163 mg/dL (<200); Glucose 100 mg/dL (74-106); HDL Cholesterol 61 mg/dL (40-60); Potassium 4.6 mmol/L (3.5-5.1); Sodium 144 mmol/L (136-145); Triglyceride 43 mg/dL (<150)
== END 2024-04-25 03:04 | disposition home or self-care (01) ==
LOC: LOS 03:03
PROVIDERS: PCP Nurse Practitioner Family; Visit Provider Nurse Practitioner Family
DX: Z00.00 Encounter for general adult medical examination without abnormal findings (principal); I10 Essential (primary) hypertension; D64.9 Anemia, unspecified
CPT/HCPCS: 36415; 80048; 80061; 85025

== ENCOUNTER 2024-08-24 13:35 | Emergency (ER) | payer OTHER, SELFPAY ==
[2024-08-24 13:52] VITALS: BP 169/97; PULSE 99; RESP 16; TEMP 36.6; O2SAT 96
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
== END 2024-08-24 14:43 | disposition home or self-care (01) ==
LOC: ER 16:58
PROVIDERS: Emergency Provider Emergency Medicine; PCP Nurse Practitioner Family
DX: V48.6XXA Car passenger injured in noncollision transport accident in traffic accident, initial encounter; M79.10 Myalgia, unspecified site
CPT/HCPCS: 99283